=== PATIENT | male | born 1965 | race Caucasian/White ===

== ENCOUNTER 2016-12-25 17:17 | Emergency (ER) | payer MEDICARE, MEDICAID ==
--- OUTSIDE RECORDS SUMMARY | 2016-12-25 17:56 | XMS REPORT | Continuity of Care Document ---
:1965 Author Organization [facility] ([facility]) Address [address] [place] [address] Phone [phone] Care Team Providers Name Role Phone Isaac Adames Primary Care Provider [phone] Source Comments This disclosure is being made pursuant to the Care Everywhere program, applicable federal and state laws, and may not contain all informaitonavailable regarding this patient.[facility] ([facility]) Active Allergies and Adverse Reactions Allergen Noted Date Severity Reactions Comments Codeine Urticaria (Hives),Pruritus,Stomach Pain Current Medications Not on file Active Problems Problem Noted Date Headache(784.0) 10/06/2001 Other specified disorders of rotator cuff syndrome of shoulder and allied disorders Social History Tobacco Use Types Packs/Day Years Used Date Never Assessed Last Filed Vital Signs Vital Sign Reading Time Taken Blood Pressure - - Pulse - - Temperature - - Respiratory Rate - - Height 1.82 m (5' 11.65") 09/27/2001 8:19 AM TEST TECH Weight 96.798 kg (213 lb 6.4 oz) 09/27/2001 8:19 AM TEST TECH Body Mass Index 29.22 09/27/2001 8:19 AM TEST TECH Oxygen Saturation - - Plan of Care Health Maintenance Due Date Last Done Comments Hepatitis B Vaccine (1 of 3 - Primary Series) 1965 Tdap Vaccine 1975 Lipid Disorder Screening 1982 MMR Vaccine 1982 Td Vaccine 1982 Colonoscopy 2014 Prostate Cancer Screening 2014 04/29/2001 Influenza Vaccine: Seasonal (#1) 04/10/2016 HCV Screening Completed 04/29/2001 Results from Last 3 Months Not on file
[2016-12-25] MEDS ORDERED: KETOROLAC TROMETHAMINE 60 MG/2 ML VIAL IM ONE ×2 (18:29→18:34)
[2016-12-25 19:17] VITALS: BP 113/74
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
== END 2016-12-25 19:20 | disposition home or self-care (01) ==
LOC: ER 17:17
DX: S46.911A Strain of unspecified muscle, fascia and tendon at shoulder and upper arm level, right arm, initial encounter (principal); G40.409 Other generalized epilepsy and epileptic syndromes, not intractable, without status epilepticus; F41.8 Other specified anxiety disorders; X58.XXXA Exposure to other specified factors, initial encounter; Y93.89 Activity, other specified; Y92.69 Other specified industrial and construction area as the place of occurrence of the external cause; Y99.0 Civilian activity done for income or pay; Z53.29 Procedure and treatment not carried out because of patient's decision for other reasons